=== PATIENT | female | born 1935 | race Caucasian/White ===

== ENCOUNTER 2018-02-17 13:00 | Emergency (ER) | payer BC ==
[2018-02-17 13:13] VITALS: BP 129/83; PULSE 84; BMI 20.4
--- NOTE | 2018-02-17 14:48 | PDOC ---
History of Present Illness - General Chief Complaint: Pain Stated Complaint: WRIST PAIN (PCP SENT) Time Seen by Provider: 02/17/18 13:15 History Source: Patient Exam Limitations: No Limitations - History of Present Illness Initial Comments: 02/17/18 15:09 Pt is an 82 y/o F with PMH of RA, who presents to the ED with R wrist pain. Pt states she has noticed a bump over the R wrist for the past two weeks. She states that if fluctuates in size. States that it is painful. Denies fevers, chills, fall, trauma, numbness and tingling to the extremity, weakness. Pt is R hand dominant. Past History - Travel Traveled outside of the country in the last 30 days: No Close contact w/someone who was outside of country & ill: No - Past Medical History Allergies/Adverse Reactions: Allergies Allergy/AdvReac Type Severity Reaction Status Date / Time No Known Allergies Allergy Verified 02/17/18 13:09 Home Medications: Ambulatory Orders Alendronate Sodium/Vitamin D3 [Fosamax Plus D 70 mg-5,600 Iu vIT d] 1 each PO Q7D 02/17/18 Carbidopa/Levodopa [Sinemet 10-100 mg Tablet] 1 each PO QID 02/17/18 Diclofenac Sodium [Diclofenac Sodium ER] 100 mg PO ASDIR PRN 02/17/18 Gabapentin [Neurontin -] 800 mg PO Q8H 02/17/18 Gabapentin [Neurontin] 200 mg PO HS 02/17/18 Levetiracetam [Keppra] 250 mg PO BID 02/17/18 Levothyroxine [Synthroid -] 50 mcg PO DAILY 02/17/18 - Suicide/Smoking/Psychosocial Hx Smoking History: Never smoked Review of Systems - Review of Systems Able to Perform ROS?: Yes Comments:: 02/17/18 14:41 CONSTITUTIONAL: Absent: fever, chills, diaphoresis, generalized weakness, malaise, loss of appetite HEENT: Absent: rhinorrhea, nasal congestion, throat pain, throat swelling, difficulty swallowing, mouth swelling, ear pain, eye pain, visual Changes CARDIOVASCULAR: Absent: chest pain, loss of consciousness, palpitations, irregular heart rate, peripheral edema RESPIRATORY: Absent: cough, shortness of breath, dyspnea with exertion, orthopnea, wheezing, stridor, hemoptysis GASTROINTESTINAL: Absent: abdominal pain, abdominal distension, nausea, vomiting, diarrhea, constipation, melena, hematochezia GENITOURINARY: Absent: dysuria, frequency, urgency, hesitancy, hematuria, flank pain, genital pain MUSCULOSKELETAL: Present: lump to R wrist Absent: myalgia, arthralgia, joint swelling SKIN: Absent: rash, itching, pallor HEMATOLOGIC/IMMUNOLOGIC: Absent: easy bleeding, easy bruising, lymphadenopathy, frequent infections ENDOCRINE: Absent: unexplained weight gain, unexplained weight loss, heat intolerance, cold intolerance NEUROLOGIC: Absent: headache, focal weakness or paresthesias, dizziness, unsteady gait, seizure, mental status changes, bladder or bowel incontinence PSYCHIATRIC: Absent: anxiety, depression, suicidal or homicidal ideation, hallucinations. Is the patient limited Taiwanese proficient: No *Physical Exam - Vital Signs Last Vital Signs Temp Pulse Resp BP Pulse Ox 84 20 129/83 98 02/17/18 13:12 02/17/18 13:12 02/17/18 13:12 02/17/18 13:12 - Physical Exam Comments: 02/17/18 14:41 GENERAL: Well developed, well nourished. Awake and alert. No acute distress. MUSCULOSKELETAL Normal range of motion at all joints. No bony deformities or tenderness. No CVA tenderness. EXTREMITIES: Cyst to the volar R wrist. No ecchymosis, cellulitis to the area. No cyanosis. No clubbing. No calf tenderness. SKIN: Warm and dry. Normal capillary refill. No rashes. No jaundice. NEUROLOGICAL: Alert, awake, appropriate. Cranial nerves 2-12 intact. No deficits to light touch and temperature in face, upper extremities and lower extremities. No motor deficits in the in face, upper extremities and lower extremities. Normoreflexic in the upper and lower extremities. Normal speech. Toes are down- going bilaterally. Gait is normal without ataxia. ED Treatment Course - RADIOLOGY Radiology Studies Ordered: Category Date Time Status WRIST W/HAND-RIGHT* [RAD] Stat Radiology 02/17/18 13:22 Taken Medical Decision Making - Medical Decision Making 02/17/18 15:22 Pt is an 82 y/o F with PMH of RA, who presents to the ED with R wrist pain. Pt states she has noticed a bump over the R wrist for the past two weeks. -Pt with fluctuance over the R lateral volar wrist, with no evidence of cellulitis -X-ray is negative for fracture -VSS, afebrile -Most likely a ganglion cyst. -Wrist splint applied; ortho follow up given -I discussed the physical exam findings, ancillary test results and final diagnoses with the patient. I answered all of the patient's questions. The patient was satisfied with the care received and felt comfortable with the discharge plan and treatment plan. The Patient agrees to follow up with the primary care physician/specialist within 24-72 hours. Return precautions were given. *DC/Admit/Observation/Transfer Diagnosis at time of Disposition: Ganglion cyst of dorsum of right wrist - Discharge Dispostion Disposition: HOME Condition at time of disposition: Stable Decision to Admit order: No - Referrals Referrals: Rayo Will [Primary Care Provider] - oYhan Faye MD [Staff Physician] - - Patient Instructions Printed Discharge Instructions: DI Ganglion Cyst Additional Instructions: You have a ganglion cyst on her wrist. Take her diclofenac as scheduled. You may wear the wrist brace during the day to help with the pain. Your x-ray was negative for fracture. Please follow-up with orthopedics this week. A referral has been provided for you. Please call Dr. Faye's office. Return to emergency department if increasing pain, numbness and tingling to the extremity, for unable to move your hands, you've any changes in her symptoms. - Post Discharge Activity
== END 2018-02-17 15:11 | disposition home or self-care (01) ==
LOC: JERFT 13:00
DX: M67.431 Ganglion, right wrist (principal); M06.9 Rheumatoid arthritis, unspecified
CPT/HCPCS: 73110-TC-RT-FY; 73130-TC-RT-FY; 99282-25